=== PATIENT | male | born 1965 | race American Indian/Alaskan Native ===

== ENCOUNTER 2017-04-17 12:14 | Emergency (ER) | payer BC ==
[2017-04-17] MEDS ORDERED: Naproxen 550 mg Tab PO STA (13:10)
[2017-04-17] MEDS ORDERED: Naproxen 550 mg Tab PO ONE (13:30)
[2017-04-17 13:37] VITALS: O2SAT 97
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
[2017-04-17 15:21] VITALS: BP 104/65; PULSE 85; RESP 18; TEMP 97.9
== END 2017-04-17 15:40 | disposition home or self-care (01) ==
LOC: C.ER 12:14
DX: E11.40 Type 2 diabetes mellitus with diabetic neuropathy, unspecified (principal); M54.5 Low back pain